=== PATIENT | male | born 1955 | race Caucasian/White ===

== ENCOUNTER 2017-12-10 11:31 | Outpatient (CLI) ==
[2017-12-10 13:02] VITALS: BMI 37.5
== END 2017-12-10 11:32 | disposition home or self-care (01) ==
LOC: DIETCN 11:31
PROVIDERS: ATTEND Family Medicine
DX: E11.9 Type 2 diabetes mellitus without complications (principal)

== ENCOUNTER 2018-04-13 11:02 | Outpatient (CLI) ==
--- NOTE | 2018-04-13 11:40 | DI ---
EXAM: Four views of the sinuses. History: Sinusitis. Findings: Evaluation is difficult due to overlapping osseous and soft tissue structures. No grossly displaced fractures identified. Nasal septum is bowed to the left. No distinct air-fluid levels ar e seen within the sinuses. Impression: No acute findings. If symptoms persist, recommend correlation with sinus CT.
== END 2018-04-13 11:03 | disposition home or self-care (01) ==
LOC: RAD 11:02
PROVIDERS: ATTEND Otolaryngology
DX: J32.9 Chronic sinusitis, unspecified (principal)